=== PATIENT | female | born 1990 | race African-American/Black ===

== ENCOUNTER 2023-12-04 14:26 | Emergency (ER) | payer BC | END 2023-12-04 15:41 | disposition home or self-care (01) | LOC: VM.ED 14:26 | DX: S13.4XXA Sprain of ligaments of cervical spine, initial encounter (principal); S90.32XA Contusion of left foot, initial encounter; W17.89XA Other fall from one level to another, initial encounter; Y92.812 Truck as the place of occurrence of the external cause | CPT/HCPCS: 73620-LT; 99283 ==